=== PATIENT | female | born 2000 | race Caucasian/White ===

== ENCOUNTER 2020-02-02 10:03 | Outpatient (CLI) | payer OTHER, SELFPAY ==
--- NOTE | ~2020-02-02 | US_ITS ---
EXAMINATION: US right upper quadrant EXAM DATE: 02/02/2020 10:46 INDICATION: Right upper quadrant pain. TECHNIQUE: Multiple grayscale and Doppler images of the abdomen right upper quadrant were obtained (b y a technologist who performed the scan) and subsequently reviewed. Comparison is made to prior exami nation from 12/04/2015. FINDINGS: The pancreatic head and body are normal in appearance. The pancreatic tail is not visualized. The l iver has normal echogenicity and contour. There are no focal liver lesions identified. There is no evidence of intrahepatic biliary duct dilation. Portal venous flow was seen in the hepatopedal, nor mal direction and has normal Doppler waveform. No right-sided hydronephrosis. Common bile duct measures 4 mm, which is normal. The gallbladder fossa is unremarkable. IMPRESSION: 1. Unremarkable abdominal ultrasound exam. Reviewed, dictated and finalized at location A.
[2020-02-02 11:19] LABS: Alanine Aminotransferase 24 U/L (4-35); Albumin Level 4.1 g/dL (3.5-5.1); Alkaline Phosphatase 73 U/L (38-126); Amylase 35 U/L (30-110); Aspartate Amino Transferase 26 U/L (14-36); Bilirubin Indirect 0.4 mg/dL (0-1.1); Bilirubin,Total 0.5 mg/dL (0.2-1.3); Lipase 55 U/L (23-300)
== END 2020-02-02 10:04 | disposition home or self-care (01) ==
LOC: ANHIMG 10:10
PROVIDERS: Visit Provider Internal Medicine Gastroenterology
DX: R10.13 Epigastric pain (principal); R10.11 Right upper quadrant pain
CPT/HCPCS: 36415; 76705; 82040; 82150; 82247; 82248; 83690; 84075; 84450; 84460

== ENCOUNTER 2020-04-25 14:36 | Emergency (ER) | payer OTHER, SELFPAY ==
[2020-04-25 14:40] VITALS: BP 125/81; PULSE 89; RESP 20; TEMP 36.5; O2SAT 100
--- NOTE | 2020-04-25 14:45 | ED.DIZZY ---
HPI - Dizziness General Chief Complaint: Dizziness Stated Complaint: dizzy/light headed Time Seen by Provider: 04/25/20 14:45 Source: patient and RN notes reviewed History of Present Illness HPI Narrative: Patient is a 19-year-old female who presents the urgent care with complaints of dizziness and lightheadedness. Patient states that it started at 9 AM this morning and the lady at work, who has blood sugar issues, advised her to try eating a candy bar. Patient states it did not improve and she proceeded to drink a bottle of orange juice around 130 this afternoon. Patient states that she was still symptomatic and her stepfather brought her to the facility today. Patient states that she does have a history of borderline diabetes as a teenager but has not had any issues since and has not followed up with a physician in some time. Patient denies of any related healthcare issues. Has not done anything [id number] for her symptoms. Denies of any upper respiratory symptoms, fever, nausea, vomiting, abdominal pain. 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 Patient ambulates without difficulty. No other acute complaints. No acute distress noted. Patient aware of the plan of care. Some parts of this dictation were generated by voice recognition software and may contain typographical and/or grammatical inaccuracies. Related Data Home Medications Medication Instructions Recorded Confirmed No Home Medications 04/25/20 04/25/20 Allergies Allergy/AdvReac Type Severity Reaction Status Date / Time vancomycin Allergy Redness of Verified 04/25/20 14:46 Skin morphine AdvReac Other Verified 04/25/20 14:46 Review of Systems Review of Systems: Narrative: CONSTITUTIONAL: Denies fever, chills, or sweats. EYES: Denies visual changes, redness, or discharge. ENT: Denies rhinorrhea, congestion, sore throat, or otalgia. CARDIOVASCULAR: Denies chest pain, palpitations, or edema. RESPIRATORY: Denies cough or dyspnea. GASTROINTESTINAL: Denies abdominal pain, nausea, vomiting, or diarrhea. GENITOURINARY: Denies dysuria or hematuria. SKIN: Denies rash or itching. MUSCULOSKELETAL: Denies back pain, joint pain, or myalgia. NEUROLOGIC: Reports of lightheaded and dizziness All other systems reviewed are negative, except as documented in HPI. PMFSH Comments At the time of my signature, I reviewed and agree with the nursing past medical, surgical, social, and family history. There is no relevant family history pertinent to the patient complaint. Exam Narrative: Exam Narrative: GENERAL: This is a well-nourished, well-developed patient, appears slightly fatigued HEAD: normocephalic, atraumatic. EYES: PERRL. Sclera clear/white. Vision is grossly intact. EARS: External ears normal, auditory canals clear and without drainage, TMs normal without perforation. Hearing grossly intact. NOSE: External nose normal with no obvious nasal discharge, nares without redness, no rhinorrhea. THROAT: Mucous membranes moist, posterior pharynx clear. Mild postnasal drainage NECK: Neck supple, non-tender without lymphadenopathy, masses or thyromegaly. CARDIOVASCULAR: Regular rate and rhythm without murmurs, gallops, or rubs. RESPIRATORY: Clear to auscultation. Breath sounds equal bilaterally. No wheezes, rales, or rhonchi. GASTROINTESTINAL: Abdomen soft, non-tender, nondistended. SKIN: warm, intact with no suspicious lesions or rash, good texture and turgor. NEURO: awake, alert, and oriented to person, place and time. There were no obvious focal neurologic abnormalities. Equal bilateral rn anesthetist/strength. Ambulates without swaying/difficulties. EXTREMITIES: No clubbing, cyanosis, or edema. Course Vital Signs Vital signs: Vital Signs Temperature 97.7 F 04/25/20 14:40 Pulse Rate 89 04/25/20 14:40 Respiratory Rate 20 04/25/20 14:40 Blood Pressure 125/81 04/25/20 14:40 Pulse Oximetry 100 04/25/20 14:40
[2020-04-25 15:28] LABS: Glucose Point of Care 80 (65-105)
== END 2020-04-25 15:18 | disposition left against medical advice (07) ==
PROVIDERS: Emergency Provider Nurse Practitioner Family; PCP Pediatrics
DX: R42 Dizziness and giddiness (principal)
CPT/HCPCS: 81025; 82948; 99213; G0463

== ENCOUNTER 2020-09-13 16:27 | Outpatient (CLI) | payer OTHER, SELFPAY ==
--- NOTE | ~2020-09-13 | CT_ITS ---
EXAMINATION: CT abdomen pelvis w con DATE: 09/13/2020 17:12 INDICATION: Upper abdominal pain. TECHNIQUE: Computed tomography (CT) of the abdomen and pelvis was performed with 100 mL Omnipaque-350 intravenous contrast. Automated exposure control and iterative reconstruction technique were employe d. The dose-length product was 1622.60 mGy-cm. COMPARISON: None FINDINGS: Lung bases are clear. Heart size is normal. No pericardial or pleural effusion. Cholecystectomy clips at the gallbladder fossa. Liver, spleen, pancreas, bilateral adrenal glands and kidneys are normal. Bowels including the appendix are normal. Bladder, anteverted uterus and bilateral adnexa are unremar kable. No free intraperitoneal gas or fluid. No pathologically enlarged abdominal or pelvic lymphaden opathy. Bones are unremarkable. IMPRESSION: 1. No acute intra-abdominal/pelvic process. Reviewed, dictated and finalized at location A.
== END 2020-09-13 16:28 | disposition home or self-care (01) ==
PROVIDERS: PCP Nurse Practitioner Family; Visit Provider Internal Medicine Gastroenterology
DX: R10.10 Upper abdominal pain, unspecified (principal)
CPT/HCPCS: 74177; Q9967

== ENCOUNTER 2020-09-27 15:41 | Emergency (ER) | payer OTHER, SELFPAY ==
--- NOTE | 2020-09-27 15:45 | ED.URI ---
HPI - URI/Sore Throat General Chief Complaint: Upper Respiratory Infection Stated Complaint: sore throat Time Seen by Provider: 09/27/20 15:45 Source: patient and RN notes reviewed History of Present Illness HPI Narrative: Patient is a 19-year-old female who presents the urgent care with complaints of sore throat, runny nose, sinus congestion. Patient states is been ongoing for the last 4 days. Patient states she had a negative Covid test and wanted to make sure she did not have strep throat . Patient denies any fever, chills, nausea, vomiting. States that she has had some intermittent headaches. Patient has been using Tylenol for the headache. No other acute complaints. No acute distress noted. Patient aware of the plan of care. Some parts of this dictation were generated by voice recognition software and may contain typographical and/or grammatical inaccuracies. Related Data Home Medications Medication Instructions Recorded Confirmed No Home Medications 04/25/20 04/25/20 Allergies Allergy/AdvReac Type Severity Reaction Status Date / Time vancomycin Allergy Redness of Verified 09/27/20 15:50 Skin morphine AdvReac Other Verified 09/27/20 15:50 Review of Systems Review of Systems: Narrative: CONSTITUTIONAL: Denies fever, chills, or sweats. EYES: Denies visual changes, redness, or discharge. ENT: Reports of sinus pressure, rhinorrhea and sore throat CARDIOVASCULAR: Denies chest pain, palpitations, or edema. RESPIRATORY: Denies cough or dyspnea. GASTROINTESTINAL: Denies abdominal pain, nausea, vomiting, or diarrhea. GENITOURINARY: Denies dysuria or hematuria. SKIN: Denies rash or itching. MUSCULOSKELETAL: Denies back pain, joint pain, or myalgia. NEUROLOGIC: Reports of intermittent headaches All other systems reviewed are negative, except as documented in HPI. PMFSH Comments At the time of my signature, I reviewed and agree with the nursing past medical, surgical, social, and family history. There is no relevant family history pertinent to the patient complaint. Exam Narrative: Exam Narrative: GENERAL: This is a well-nourished, well-developed patient, in no apparent distress. HEAD: normocephalic, atraumatic. EYES: PERRL. Sclera clear/white. Vision is grossly intact. EARS: External ears normal, auditory canals clear and without drainage, TMs normal without perforation. Hearing grossly intact. NOSE: External nose normal with no obvious nasal discharge, nares without redness, no rhinorrhea. THROAT: Mucous membranes moist, mild erythema noted posterior oropharynx with moderate postnasal drainage NECK: Neck supple, non-tender without lymphadenopathy CARDIOVASCULAR: Regular rate and rhythm without murmurs, gallops, or rubs. RESPIRATORY: Clear to auscultation. Breath sounds equal bilaterally. No wheezes, rales, or rhonchi. SKIN: warm, intact with no suspicious lesions or rash, good texture and turgor. NEURO: awake, alert, and oriented to person, place and time. There were no obvious focal neurologic abnormalities. EXTREMITIES: No clubbing, cyanosis, or edema. Course Vital Signs Vital signs: Vital Signs Temperature 97.9 F 09/27/20 15:46 Pulse Rate 90 09/27/20 15:46 Respiratory Rate 20 09/27/20 15:46 Blood Pressure 123/70 09/27/20 15:46 Pulse Oximetry 99 09/27/20 15:46 Temperature 97.9 F 09/27/20 15:46 Pulse Rate 90 09/27/20 15:46 Respiratory Rate 20 09/27/20 15:46 Blood Pressure 123/70 09/27/20 15:46 Pulse Oximetry 99 09/27/20 15:46 Reviewed MDM - URI/Sore Throat MDM Narrative Medical decision making narrative: Reviewed lab results with the patient. She is aware that strep swab was negative. Educated patient on culture and we will call within 72 hours if culture is positive and antibiotics are necessary. Advised the patient to use [id number] antihistamine such as Claritin or Zyrtec in conjunction with Flonase nasal spray for postnasal drainage and sinus relief.
[2020-09-27 15:46] VITALS: BP 123/70; PULSE 90; RESP 20; TEMP 36.6; O2SAT 99
== END 2020-09-27 16:10 | disposition home or self-care (01) ==
PROVIDERS: Emergency Provider Nurse Practitioner Family; PCP Nurse Practitioner Family
DX: J02.9 Acute pharyngitis, unspecified (principal)
CPT/HCPCS: 87081; 87880; 99213; G0463

== ENCOUNTER 2020-10-27 13:41 | Emergency (ER) | payer OTHER, SELFPAY ==
--- NOTE | ~2020-10-27 | CT_ITS ---
EXAMINATION: CT brain wo con DATE: 10/27/2020 16:05 INDICATION: Headache TECHNIQUE: Computed tomography (CT) of the head was performed without intravenous contrast. Sagittal and coronal reconstructions were performed. The mA was adjusted according to patient size. Iterative reconstruction technique was employed. The dose-length product was 605.33 mGy-cm. COMPARISON: None FINDINGS: No acute intracranial hemorrhage, acute infarction or abnormal extra axial fluid collection. Ventricl es are normal and symmetric. No mass/mass effect. The orbits, paranasal sinuses and mastoid air cells are normal. IMPRESSION: 1. Normal head CT. Reviewed, dictated and finalized at location A. IMPRESSION: 1. Normal head CT.
[2020-10-27 13:43] VITALS: BP 147/84; PULSE 99; RESP 18; TEMP 36.3; O2SAT 99
--- NOTE | 2020-10-27 15:15 | ED.HA ---
HPI - Headache General Chief Complaint: Headache Stated Complaint: shooting head pains Time Seen by Provider: 10/27/20 15:15 History of Present Illness HPI Narrative: Intermittent shooting pains in the top of her head throughout the day today. Last seconds and followed by burning/tingling in her scalp. The pain is moderate in severity. No associated symptoms. She was just started on spironolactone, metformin and control pills for PCOS. Related Data Home Medications Medication Instructions Recorded Confirmed No Home Medications 04/25/20 09/27/20 Allergies Allergy/AdvReac Type Severity Reaction Status Date / Time vancomycin Allergy Redness of Verified 09/27/20 15:50 Skin morphine AdvReac Other Verified 09/27/20 15:50 Review of Systems Review of Systems: All systems reviewed & are unremarkable except as noted in HPI and below Constitutional: Constitutional: Denies chills and Denies fever(s) Eyes: Eyes: Reports no additional eye complaints ENT: Denies dizziness Cardiovascular: Cardiovascular: Denies chest pain Respiratory: Respiratory: Denies dyspnea Gastrointestinal: Gastrointestinal: Denies abdominal pain, Reports nausea and Denies vomiting Genitourinary: Genitourinary: Reports no additional female genitourinary complaints Musculoskeletal: Musculoskeletal: Denies back pain Neurologic: Reports system reviewed and no additional complaints, except as documented [facility] Past Medical History Medical History (Updated 10/28/20 @ 00:00 by Background Daemon) PCOS (polycystic ovarian syndrome) Social History Social History Gender identity (if verbalized by the patient): Female Exam Const: General: healthy appearing, no acute distress and alert Orientation/consciousness: patient oriented x3 HENMT: Head: normal to inspection Eyes: Pupils: Equal, round and reactive pupils present Neck: Neck: normal visual inspection Resp: Effort & Inspection: normal respiratory effort Auscultation: clear to auscultation bilaterally, no rales, no rhonchi and no wheezes Cardio: Jugular venous distension: no JVD Rate: regular rate Rhythm: regular rhythm Heart sounds: no murmurs Skin: General skin exam: normal color Neuro: General: patient oriented x3, moves all extremities, no meningeal signs, no focal motor deficits and CN's II-XI intact bilaterally Speech: normal speech Extrem: General: normal to inspection and no edema Psych: Appearance: grossly normal and well kempt Mental Status: mental status grossly normal Affect: normal affect Attitude: cooperative Course Vital Signs Vital signs: Vital Signs Temperature 36.3 C L 10/27/20 13:43 Pulse Rate 99 10/27/20 13:43 Respiratory Rate 18 10/27/20 13:43 Blood Pressure 147/84 H 10/27/20 13:43 Pulse Oximetry 99 10/27/20 13:43 Temperature 36.3 C L 10/27/20 13:43 Pulse Rate 82 10/27/20 18:37 Respiratory Rate 18 10/27/20 18:37 Blood Pressure 132/78 10/27/20 18:37 Pulse Oximetry 99 10/27/20 18:37 MDM - Headache Differential Diagnosis Differential diagnosis: Likely migraine, tension headache and other (neuralgia) Medical Records Attestation: I reviewed the patient's medical records. Lab Data Attestation: I reviewed the patient's lab results. Result diagrams: 10/27/20 15:47 10/27/20 15:47 Labs: Lab Results 10/27/20 10/27/20 Range/Units 15:47 15:47 WBC 11.6 H (4.5-10.0) K/mm3 RBC 5.43 H (4.2-5.4) M/mm3 Hgb 14.5 (12.0-15.0) g/dL Hct 44.9 (37.0-47.0) % MCV 82.7 (80-100) fl MCH 26.7 (26-34) pg MCHC 32.3 (32-36) g/dl RDW 13.5 (11.5-14.5) % Plt Count 284 (150-375) k/mm3 MPV 10.2 (7.4-10.4) fl Immature Gran % (Auto) 0.3 (0-0.5) % Neut % (Auto) 59.9 (45.5-73.1) % Lymph % (Auto) 31.0 (18.3-44.2) % [place] % (Auto) 7.5 (2.6-8.5) % Eos % (Auto) 1.0 (0-4.4) % Baso % (Auto) 0.3 (0.2-1.2) % Lymph # (Auto) 3.59 H (0.
[2020-10-27 15:17] VITALS: BP 154/74; PULSE 95; RESP 18; O2SAT 93
[2020-10-27 15:18] VITALS: BP 154/74
[2020-10-27 15:32] VITALS: BP 122/93
[2020-10-27 15:46] VITALS: BP 127/75
[2020-10-27 15:52] LABS: Basophils Percent Auto 0.3 % (0.2-1.2); Eosinophils Absolute Auto 0.1 K/mm3 (0-0.3); Hematocrit 44.9 % (37.0-47.0); Hemoglobin 14.5 g/dL (12.0-15.0); Immature Granulocyte Absolute 0.04 K/mm3 (0.00-0.031); Immature Granulocyte Percent A 0.3 % (0-0.5); Lymphocytes Absolute Auto 3.59 K/mm3 (0.9-3.2); Mean Corpuscular HGB Conc 32.3 g/dl (32-36); Mean Corpuscular Hemoglobin 26.7 pg (26-34); Mean Corpuscular Volume 82.7 fl (80-100); Mean Platelet Volume 10.2 fl (7.4-10.4); Monocytes Absolute Auto 0.9 K/mm3 (0.1-0.6); Monocytes Percent Auto 7.5 % (2.6-8.5); Neutrophils Absolute Auto 6.9 K/mm3 (1.3-6.7); Neutrophils Percent Auto 59.9 % (45.5-73.1); Platelet Count Result 284 k/mm3 (150-375); Red Blood Count 5.43 M/mm3 (4.2-5.4); Red Cell Distribution Width 13.5 % (11.5-14.5); White Blood Count 11.6 K/mm3 (4.5-10.0)
[2020-10-27] MEDS: KETOROLAC 30 MG/ML VIAL (*BKC) IV PUSH (15:52)
[2020-10-27 16:06] LABS: Anion Gap 8 mmol/L (8-16); Blood Urea Nitrogen 17 mg/dL (7-17); Carbon Dioxide 26 mmol/L (22-30); Chloride 107 mmol/L (98-107); Estimated CRCL calculation 129 ml/min; Estimated Glomerular Filt Rate > 60; Glucose 67 mg/dL (65-105); Potassium 4.3 mmol/L (3.4-5.0); Sodium 141 mmol/L (137-145)
[2020-10-27 18:37] VITALS: BP 132/78; PULSE 82; RESP 18; O2SAT 99
== END 2020-10-27 18:40 | disposition home or self-care (01) ==
PROVIDERS: Emergency Provider Emergency Medicine; PCP Nurse Practitioner Family
DX: R51.9 Headache, unspecified (principal); E28.2 Polycystic ovarian syndrome; Z79.84 Long term (current) use of oral hypoglycemic drugs
CPT/HCPCS: 36415; 70450; 80048; 85025; 96374; 99284; J1885

== ENCOUNTER 2021-09-16 15:40 | Emergency (ER) | payer OTHER, SELFPAY ==
[2021-09-16 16:05] VITALS: BP 126/97; PULSE 108; RESP 18; TEMP 36.3; O2SAT 99
[2021-09-16 16:20] LABS: Basophils Percent Auto 0.3 % (0.2-1.2); Eosinophils Absolute Auto 0.1 K/mm3 (0-0.3); Eosinophils Percent Auto 0.7 % (0-4.4); Hemoglobin 14.3 g/dL (12.0-15.0); Immature Granulocyte Absolute 0.03 K/mm3 (0.00-0.031); Immature Granulocyte Percent A 0.3 % (0-0.5); Lymphocytes Absolute Auto 1.52 K/mm3 (0.9-3.2); Lymphocytes Percent Auto 14.4 % (18.3-44.2); Mean Corpuscular HGB Conc 32.5 g/dl (32-36); Mean Corpuscular Volume 83.2 fl (80-100); Mean Platelet Volume 9.9 fl (7.4-10.4); Monocytes Absolute Auto 0.6 K/mm3 (0.1-0.6); Monocytes Percent Auto 5.8 % (2.6-8.5); Neutrophils Absolute Auto 8.3 K/mm3 (1.3-6.7); Neutrophils Percent Auto 78.5 % (45.5-73.1); Platelet Count Result 278 k/mm3 (150-375); Red Blood Count 5.29 M/mm3 (4.2-5.4); Red Cell Distribution Width 13.6 % (11.5-14.5); White Blood Count 10.6 K/mm3 (4.5-10.0)
[2021-09-16 16:29] LABS: Alanine Aminotransferase 27 U/L (4-35); Albumin Level 4.4 g/dL (3.5-5.1); Alkaline Phosphatase 65 U/L (38-126); Anion Gap 9 mmol/L (8-16); Aspartate Amino Transferase 32 U/L (14-36); Bilirubin,Total 0.3 mg/dL (0.2-1.3); Blood Urea Nitrogen 16 mg/dL (7-17); Calcium 9.4 mg/dL (8.4-10.2); Carbon Dioxide 23 mmol/L (22-30); Chloride 105 mmol/L (98-107); Estimated CRCL calculation 112 ml/min; Estimated Glomerular Filt Rate > 60; Glucose 85 mg/dL (65-110); Lipase 60 U/L (23-300); Potassium 4.3 mmol/L (3.4-5.0); Sodium 137 mmol/L (137-145)
--- NOTE | 2021-09-16 16:54 | PC.NURSE ---
Patient's visitor upset about being asked to leave the ED due to the no visitor policy in the waiting room area. patient's mother reports that other hospital's don't make them do this. patient's mother then asked how long is the wait and how many people are on the list so she can call the hospitalist to tell them. Patient and mother walked out of ED without difficulty and in no distress.
== END 2021-09-16 16:54 | disposition left against medical advice (07) ==
LOC: ANHED 17:04
PROVIDERS: Emergency Provider Emergency Medicine; PCP Nurse Practitioner Family
DX: R11.2 Nausea with vomiting, unspecified (principal)
CPT/HCPCS: 36415; 80053; 83690; 85025; 99199

== ENCOUNTER 2022-01-30 22:32 | Emergency (ER) | payer OTHER, SELFPAY ==
--- NOTE | ~2022-01-30 | XR_ITS ---
EXAMINATION: XR hand LT min 3V INDICATION: Hand pain TECHNIQUE: Three views of the left hand are obtained. COMPARISON: None available FINDINGS: Bone alignment is normal. There is no fracture. Soft tissue swelling is seen in the medial aspect of the hand near the fifth metacarpal. No radiopaque foreign body is identified. The joint spa dion are normal. IMPRESSION: 1. Soft tissue swelling without acute osseous abnormality. Reviewed, dictated and finalized at location B.
[2022-01-30 22:33] VITALS: BP 134/106; PULSE 99; RESP 16; TEMP 36.7; O2SAT 100
--- NOTE | 2022-01-31 12:33 | ED.WOUNDLAC ---
HPI - Wound/Laceration General Chief Complaint: Wound/Laceration Stated Complaint: WRIST LACERATION Time Seen by Provider: 01/31/22 01:03 History of Present Illness HPI narrative: Patient is a 21 year old female here via EMS for evaluation of a laceration sustained to her left hand about 1 hour [employer]. Patient was working in the basement when she accidentally cut her hand on an old glass window. She promptly called EMS to be seen. No numbness or tingling in her hand. She is able to move her fingers without issue. She is unsure of her last tetanus shot. She has not attempted any medication [employer]. Related Data Home Medications Medication Instructions Recorded Confirmed No Home Medications 04/25/20 09/27/20 Allergies Allergy/AdvReac Type Severity Reaction Status Date / Time vancomycin Allergy Redness of Verified 01/30/22 22:32 Skin morphine AdvReac Other Verified 01/30/22 22:32 Review of Systems Review of Systems: Gen: Denies fevers or chills Eyes: Denies eye pain or visual change ENT: Denies congestion Respiratory: Denies shortness of breath or cough CV: Denies chest pain or palpitations GI: Denies abdominal pain nausea, emesis or diarrhea denies burning, urgency, frequency or hematuria Musculoskeletal: Denies back pain or muscle pain Neuro: Denies numbness, tingling, weakness or focal weakness Skin: Reports laceration to hand Except as documented, all other systems reviewed and negative PMFSH Past Medical History Medical History PCOS (polycystic ovarian syndrome) Social History Social History Gender identity (if verbalized by the patient): Female Exam Narrative: Gen: Tearful, otherwise no acute distress Eyes: EOMI, no icterus Pulm: Respirations even and unlabored, symmetric thorax expansion, no audible stridor or visible cyanosis CV: Regular rate per telemetry GI: No distension, no voluntary/involuntary guarding Neuro: AOx4, moves all extremities without apparent difficulty or weakness, follows commands Skin: Patient has a 1.5 cm irregular laceration to the palmar aspect of her right hand proximal to the thumb joint with adipose tissue exposed underneath but no active bleeding Psych: Normal mood/affect, insight/judgement good, adequate fund of knowledge, recent/remote memory intact Course Vital Signs Vital signs: Vital Signs Temperature 98.0 F 01/30/22 22:33 Pulse Rate 99 01/30/22 22:33 Respiratory Rate 16 01/30/22 22:33 Blood Pressure 134/106 H 01/30/22 22:33 Pulse Oximetry 100 01/30/22 22:33 Temperature 98.0 F 01/30/22 22:33 Pulse Rate 99 01/30/22 22:33 Respiratory Rate 16 01/30/22 22:33 Blood Pressure 134/106 H 01/30/22 22:33 Pulse Oximetry 100 01/30/22 22:33 Procedures Laceration Laceration 1: Date: 01/30/22 Time: 11:55 Site: other (Left hand) Size (cm): 1.5 Description: irregular Depth: simple, single layer Local Anesthetic: lidocaine 1% and with epi Amount of anesthesia used (mL): 5 Pre-repair: wound explored, irrigated and irrigated extensively ====== Skin Level ====== Skin layer closed with: other (4-0 ethilon) Number of sutures: 4 Technique: simple, interrupted ====== Subcutaneous Layer ====== ====== Muscle Layer ====== ====== Tendon Layer ====== MDM - Wound/Laceration MDM Narrative Medical decision making narrative: 21 year old female here for evaluation of a laceration to her palm sustained from a glass window. She has evidence of a 1.5 cm irregular laceration to her left palm with no active bleeding and adipose tissue exposed. Wound was irrigated extensively without FB visualized. XR without obvious osseous abnormality. Closure was obtained with simple interrupted sutures. Her tetanus was updated. She was advised on wound care and was given return precautions, and voiced underst
== END 2022-01-31 04:17 | disposition home or self-care (01) ==
PROVIDERS: Emergency Provider Emergency Medicine; PCP Nurse Practitioner Family
DX: S61.412A Laceration without foreign body of left hand, initial encounter (principal); Z23 Encounter for immunization; E28.2 Polycystic ovarian syndrome; W25.XXXA Contact with sharp glass, initial encounter
CPT/HCPCS: 12001; 73130; 90471; 90715; 99283; A9270

== ENCOUNTER 2022-07-16 00:45 | Day surgery (SDC) | payer OTHER, SELFPAY ==
[2022-07-08 15:27] VITALS: BMI 42.0
[2022-07-16 06:41] VITALS: BP 126/83; PULSE 83; RESP 18; TEMP 36.1; O2SAT 99
[2022-07-16] MEDS: LACTATED RINGERS 1,000 ML 150 ML IV CONT (07:00)
--- NOTE | 2022-07-16 08:00 | P.PNAN_ITS ---
Anes - Initial Pre Proc Eval Procedure: Operation Date: 07/16/22 08:00 Proposed Procedures p Esophagogastroduodenoscopy - Gabriel Qiu MD Date/Time: 07/16/22 08:00 Surgeon: Gabriel Qiu MD Pre Op Diagnosis: GERD Patient Data Age: 21 Gender: F Height: 1.68 m Weight: 118 kg Last Vital Signs Temp 97 F L 07/16/22 06:41 Pulse 83 07/16/22 06:41 Resp 18 07/16/22 06:41 BP 126/83 07/16/22 06:41 Pulse Ox 99 07/16/22 06:41 O2 Del Method Room Air 07/16/22 06:41 Allergies Allergy/AdvReac Type Severity Reaction Status Date / Time morphine Allergy Severe Redness of Verified 07/16/22 06:39 Skin vancomycin Allergy Severe Redness of Verified 07/16/22 06:39 Skin venlafaxine Allergy Intermediate Dizziness Verified 07/16/22 06:39 Home Medications Medication Instructions Recorded Confirmed Type amitriptyline 25 mg tablet 25 mg PO HS 07/08/22 07/08/22 History desogestrel 0.15 mg-ethinyl 1 tablet PO DAILY 07/08/22 07/08/22 History estradiol 0.03 mg tablet (Isibloom) dicyclomine 10 mg capsule 10 mg PO QID PRN Spasms 07/08/22 07/08/22 History ergocalciferol (vitamin D2) 1,250 50,000 unit PO WEEKLY 07/08/22 07/08/22 History mcg (50,000 unit) capsule famotidine 40 mg tablet 40 mg PO DAILY 07/08/22 07/08/22 History modafinil 200 mg tablet 200 mg PO DAILY 07/08/22 07/08/22 History spironolactone 50 mg tablet 50 mg PO BID 07/08/22 07/08/22 History Patient hx anesthesia problems: none Family hx anesthesia problems: none Results Review: All pre-operative results and documents have been reviewed as part of the pre- operative evaluation. [facility] Past Medical History Medical History PCOS (polycystic ovarian syndrome) Social History Social History Smoking status: Never smoker Alcohol intake: current Substance use: never Living arrangements: with family Gender identity (if verbalized by the patient): Female Spiritual care concerns: No Anes - Eval Final PreProcedure Day of Procedure 07/16/22 08:00 Patient weight: morbidly obese Heart: regular rate and rhythm Lungs: clear to auscultation Airway: Mallampati scale class II Neurological: alert and oriented Last oral intake: >/= 8 hours ASA classification: III Emergent: no Anesthetic plan: proceed Anesthesia type and monitoring: general GIVS and standard monitoring Results Review: All pre-operative results and documents have been reviewed as part of the pre- operative evaluation. Informed Consent: The patient's anesthetic plan and its attendant risks and benefits were discussed with the patient/family/POA. Questions were solicited and answers provided to the satisfaction of the patient/family/POA.
--- NOTE | 2022-07-16 08:04 | PM.HPGS ---
History of Present Illness History of Present Illness Consent: Risks, benefits, and alternatives have been discussed and questions answered. Patient agrees to proceed with procedure. Chief complaint: GERD Narrative: Marychuy Bennett is a 21 year old female with gi issues since 2016, had misti eventually but now more symptomatic, daily morning discomfort, if she does not eat at specific times will have more pain, denies dysphagia. Using bentyl prn. Review of Systems Constitutional: Constitutional: Denies headache(s) and Denies weakness Eyes: Eyes: Denies blurry vision ENT: Reports Normal hearing present, Denies headache(s) and Denies neck pain Cardiovascular: Cardiovascular: Denies chest pain and Denies dyspnea Respiratory: Respiratory: Denies dyspnea Gastrointestinal: Gastrointestinal: Reports no additional gastrointestinal complaints Genitourinary: Genitourinary: Denies dysuria Musculoskeletal: Musculoskeletal: Denies neck pain Integumentary/Breasts: Skin/Breast: Denies dry skin Neurologic: Reports Normal hearing present, Denies headache(s) and Denies weakness Psychiatric: Psychiatric: Denies anxiety Endocrine: Endocrine: Denies change in body appearance Hematologic/Lymphatic: Hematologic/Lymphatic: Denies easy bleeding Allergic/Immunologic: Allergic/Immunologic: Denies urticaria PMFSH Past Medical History Medical History (Updated 07/16/22 @ 08:05 by Gabriel Qiu MD) IBS (irritable bowel syndrome) PCOS (polycystic ovarian syndrome) Upper abdominal pain Surgical History Surgical History (Updated 07/16/22 @ 08:05 by Gabriel Qiu MD) History of cholecystectomy Social History Social History Smoking status: Never smoker Alcohol intake: current Substance use: never Living arrangements: with family Gender identity (if verbalized by the patient): Female Spiritual care concerns: No Meds Home Medications and Allergies Home Medications Medication Instructions Recorded Confirmed Type amitriptyline 25 mg tablet 25 mg PO HS 07/08/22 07/08/22 History desogestrel 0.15 mg-ethinyl 1 tablet PO DAILY 07/08/22 07/08/22 History estradiol 0.03 mg tablet (Isibloom) dicyclomine 10 mg capsule 10 mg PO QID PRN Spasms 07/08/22 07/08/22 History ergocalciferol (vitamin D2) 1,250 50,000 unit PO WEEKLY 07/08/22 07/08/22 History mcg (50,000 unit) capsule famotidine 40 mg tablet 40 mg PO DAILY 07/08/22 07/08/22 History modafinil 200 mg tablet 200 mg PO DAILY 07/08/22 07/08/22 History spironolactone 50 mg tablet 50 mg PO BID 07/08/22 07/08/22 History Allergies Allergy/AdvReac Type Severity Reaction Status Date / Time morphine Allergy Severe Redness of Verified 07/16/22 06:39 Skin vancomycin Allergy Severe Redness of Verified 07/16/22 06:39 Skin venlafaxine Allergy Intermediate Dizziness Verified 07/16/22 06:39 Vital Signs Vital Signs - 24 hr 07/16/22 06:41 Temperature 97 F L Pulse Rate 83 Respiratory Rate 18 Blood Pressure 126/83 Pulse Oximetry 99 Oxygen Delivery Room Air Exam Const: General: comfortable and no acute distress HENMT: Face/Nose/Sinus: Normal nares present Eyes: General: appearance normal, both eyes and all related structures Neck: Neck: no JVD Resp: Auscultation: clear to auscultation bilaterally Cardio: Rate: regular rate Rhythm: regular rhythm GI: Inspection: non-distended GI Palp: Yes Soft to palpation Skin: General skin exam: normal color Neuro: General: gait normal Speech: normal speech Extrem: General: normal to inspection Psych: Mental Status: mental status grossly normal Assessment and Plan Assessment and plan (1) Upper abdominal pain: Code(s): R10.10 - Upper abdominal pain, unspecified Status: Acute Assessment and Plan: egd with bx (2) IBS (irritable bowel syndrome): Code(s): K58.9 - Irritable bowel syndrome without diarrhea Status: Acute (3) His
[2022-07-16 08:19] VITALS: BP 106/51; PULSE 73; RESP 20; O2SAT 96
[2022-07-16 08:29] VITALS: BP 118/56; PULSE 72; RESP 20; O2SAT 100
[2022-07-16 08:39] VITALS: BP 116/68; PULSE 69; RESP 24; O2SAT 100
== END 2022-07-16 08:56 | disposition home or self-care (01) ==
PROVIDERS: PCP Nurse Practitioner Family; Visit Provider Internal Medicine Gastroenterology
PROC: 0DJ08ZZ Inspection of Upper Intestinal Tract, Via Natural or Artificial Opening Endoscopic (ICD-10-PCS; CPT 43235; principal; 2022-07-16 08:00)
DX: K29.70 Gastritis, unspecified, without bleeding (principal); E28.2 Polycystic ovarian syndrome; E66.01 Morbid (severe) obesity due to excess calories; Z68.41 Body mass index [BMI] 40.0-44.9, adult; Z90.49 Acquired absence of other specified parts of digestive tract
CPT/HCPCS: 43239; 88305; J2704; J7120

== ENCOUNTER 2022-07-31 11:44 | Outpatient (CLI) | payer OTHER, SELFPAY | END 2022-07-31 11:45 | disposition home or self-care (01) | LOC: ANHLAB 11:46 | PROVIDERS: PCP Nurse Practitioner Family; Visit Provider Internal Medicine Gastroenterology | DX: R10.10 Upper abdominal pain, unspecified (principal); K58.9 Irritable bowel syndrome, unspecified | CPT/HCPCS: 84120 ==